=== PATIENT | female | born 1990 | race Caucasian/White ===

== ENCOUNTER 2021-05-08 21:15 | Emergency (ER) | payer SELFPAY ==
[2021-05-08] MEDS ORDERED: Ondansetron PF 4 MG/2 ML Vial ONE (22:02)
== END 2021-05-08 23:24 | disposition home or self-care (01) ==
LOC: ERS 21:15
DX: F12.929 Cannabis use, unspecified with intoxication, unspecified (principal); F41.9 Anxiety disorder, unspecified; Z79.899 Other long term (current) drug therapy; J45.909 Unspecified asthma, uncomplicated; F17.290 Nicotine dependence, other tobacco product, uncomplicated
CPT/HCPCS: 96374; J2405